=== PATIENT | female | born 1995 | race Caucasian/White ===

== ENCOUNTER → 2018-08-03 | Outpatient (CLI) | payer OTHER ==
--- NOTE | 2018-08-22 11:43 | P.PN ---
Progress Note - Text Progress Note Date: 08/22/18 Report on 14 day EVENT MONITOR: Baseline EKG showed a sinus rhythm. Patient mostly and stayed in sinus rhythm and sinus tachycardia with rates up to 1 5160. Patient also had 2 episodes of substernal ventricular tachycardia. The first episode lasted about 78 minutes associated with symptoms of palpitations. Second episode lasted about 30 minutes and at the time patient did not express any symptoms. Patient also complained of sharp chest pain and chest pressure, nausea vomiting, not conchis ating with any significant cardiac arrhythmias. Final impression #1. Baseline rhythm is sinus #2. Episodes of sinus tachycardia #3. 2 Episodes of supraventricular tachycardia. Patient did complain of palpitation with one episode #4. Patient complained of chest pain and tightness and nausea vomiting, not correlating with any cardiac events.
--- NOTE | 2018-08-24 17:08 | EM ---
Report on 14 day EVENT MONITOR: Baseline EKG showed a sinus rhythm. Patient mostly and stayed in sinus rhythm and sinus tachycardia with rates up to 1 5160. Patient also had 2 episodes of substernal ventricular tachycardia. The first episode lasted about 78 minutes associated with symptoms of palpitations. Second episode lasted about 30 minutes and at the time patient did not express any symptoms. Patient also complained of sharp chest pain and chest pressure, nausea vomiting, not collating with any significant cardiac arrhythmias. Final impression #1. Baseline rhythm is sinus #2. Episodes of sinus tachycardia #3. 2 Episodes of supraventricular tachycardia. Patient did complain of palpitation with one episode #4. Patient complained of chest pain and tightness and nausea vomiting, not correlating with any cardiac events. MTDD
== END | disposition home or self-care (01) ==
LOC: RADECHMAIN 11:41
PROVIDERS: ATTEND Family Medicine
DX: I47.1 Supraventricular tachycardia (principal); R11.2 Nausea with vomiting, unspecified
CPT/HCPCS: 93270

== ENCOUNTER 2018-08-14 18:00 | Emergency (ER) | payer OTHER ==
[2018-08-14 18:55] VITALS: TEMP 98.2
[2018-08-14] MEDS ORDERED: SODIUM CHLORIDE 0.9% 1,000 ML IV STA (19:53)
--- NOTE | 2018-08-14 19:59 | ED ---
General Adult HPI - General Chief complaint: Chest Pain Stated complaint: chest pain/high heart rate Time Seen by Provider: 08/14/18 19:42 Source: patient Mode of arrival: ambulatory Limitations: no limitations - History of Present Illness Initial comments: Dictation was produced using [employer] dictation software. please excuse any gramm atical, word or spelling errors. Chief Complaint: 23-year-old female past medical history of depression and fibromyalgia presents with chest pain, palpitations, shortness of breath. History of Present Illness: Patient is a 23-year-old female she has been a Holter monitor for approximately 2 weeks. She was given this Holter monitor by primary care physician for complaint of palpitations and tachycardia. Patient states she was standing up from a sitting position when she all of a sudden felt like her heart rate went up to the 200s. Patient came into the emergency department. Jimmy glover has a history of blood clot. She does complain of some generalized muscle aches. Denies any pain in her calf, popliteus or inner thigh. Denies any asymmetrical swelling. Patient denies any history of contraceptive pills. She reports that her pain is mildly sharp with some dull characteristic. She locates it to the right upper anterior chest. It sometimes worse with deep inspiration. She is at her symptoms are much improved since its onset. She does in fact have history of anxiety. The ROS documented in this emergency department record has been reviewed and confirmed by me. Those systems with pertinent positive or negative responses have been documented in the HPI. All other systems are other negative and/or noncontributory. PHYSICAL EXAM: General Impression: Alert and oriented x3, not in acute distress HEENT: Normocephalic atraumatic, extra-ocular movements intact, pupils equal and reactive to light bilaterally, mucous membranes moist. Cardiovascular: Tachycardic Chest: Lungs clear to auscultation bilaterally, no rhonchi, no wheeze, no rales Abdomen: Bowel sounds present, abdomen soft, non-tender, non-distended, no organomegaly Musculoskeletal: Pulses present and equal in all extremities, no peripheral edema Motor: no focal deficits noted Neurological: CN II-XII grossly intact, no focal motor or sensory deficits noted Skin: Intact with no visualized rashes Psych: Normal affect and mood ED course: 23yo female with past nuchal history of tachycardia presents with palpitations, chest pain or shortness of breath. Her chest pain is atypical with some typical features. Vital signs upon arrival shows heart rate of 133, worse vital signs within acceptable limits. Patient's physical examination is not suggestive of PE however she is tachycardic does have chest pain and shortness of breath.Laboratory evaluation obtained. Mild leukocytosis 12.5 rest of CBC unremarkable. Coag panel unremarkable. D-dimer is negative's of 0.49. Metabolic panel is unremarkable urinalysis negative. Urine is negative. Chest x-ray is unremarkable. The were able to get a Holter event monitoring results from her Holter monitor from [employer]. There are. Stool have been multiple occasions of supraventricular tachycardia. Patient reevaluated at bedside found to be stable medical condition. Patient given prescription for metoprolol to be taken once daily. She is given outpatient referral to cardiology. Discussed patient case with Dr. Esparza who believes that this plan is reasonable. EKG interpretation: Ventricular rate 425, sinus tachycardia,. Interval 126, QRS 70, QTc 453. No OR prolongation, no QTC prolongation, no ST or T-wave changes noted. No old EKG for comparison. There is a S1 every 3 T3 pattern. - Related Data Previous Rx's Medication Instructions Recorded Metoprolol Succinate (ER) [Toprol 25 mg PO DAILY #20 tab 08/14/18 Xl] Allergies Allergy/AdvReac Type Severity Reaction Status Date / Time No Known Allergies Allergy Verified 08/14/18 18:55 Review of Systems ROS Statement: Those systems with pertinent positive or pertinent negative responses have been documented in the HPI. ROS Other: All systems not noted in ROS Statement are negative. Past Medical History Past Medical History: Fibromyalgia Additional Past Medical History / Comment(s): TACHYCARDIA History of Any Multi-Drug Resistant Organisms: None Reported Past Surgical History: No Surgical Hx Reported Past Psychological History: Anxiety Smoking Status: Never smoker Past Alcohol Use History: Occasional Past Drug Use History: None Reported General Exam Limitations: no limitations Course Vital Signs 08/14/18 08/14/18 08/14/18 18:52 20:09 20:59 Temperature 98.2 F Pulse Rate 133 H 117 H 109 H Respiratory 20 18 16 Rate Blood Pressure 124/74 109/86 121/83 O2 Sat by Pulse 100 97 100 Oximetry Medical Decision Making - Lab Data Result diagrams: 08/14/18 20:05 08/14/18 20:05 Lab Results 08/14/18 08/14/18 08/14/18 Range/Units 20:05 20:05 20:05 WBC 12.5 H (3.8-10.6) k/uL RBC 4.88 (3.80-5.40) m/uL Hgb 12.9 (11.4-16.0) gm/dL Hct 39.7 (34.0-46.0) % MCV 81.4 (80.0-100.0) fL MCH 26.5 (25.0-35.0) pg MCHC 32.5 (31.0-37.0) g/dL RDW 12.8 (11.5-15.5) % Plt Count 485 H (150-450) k/uL Neutrophils % 69 % Lymphocytes % 23 % Monocytes % 4 % Eosinophils % 3 % Basophils % 0 % Neutrophils # 8.6 H (1.3-7.7) k/uL Lymphocytes # 2.8 (1.0-4.8) k/uL Monocytes # 0.5 (0-1.0) k/uL Eosinophils # 0.4 (0-0.7) k/uL Basophils # 0.0 (0-0.2) k/uL PT 9.4 (9.0-12.0) sec INR 0.9 (<1.2) APTT 26.6 (22.0-30.0) sec D-Dimer 0.49 (<0.60) mg/L FEU Sodium 139 (137-145) mmol/L Potassium 4.6 (3.5-5.1) mmol/L Chloride 104 (98-107) mmol/L Carbon Dioxide 22 (22-30) mmol/L Anion Gap 13 mmol/L BUN 12 (7-17) mg/dL Creatinine 0.77 (0.52-1.04) mg/dL Est GFR (CKD-EPI)AfAm >90 (>60 ml/min/1.73 sqM) Est GFR (CKD-EPI)NonAf >90 (>60 ml/min/1.73 sqM) Glucose 107 H (74-99) mg/dL Calcium 9.4 (8.4-10.2) mg/dL Magnesium 1.9 (1.6-2.3) mg/dL Total Bilirubin 0.2 (0.2-1.3) mg/dL AST 18 (14-36) U/L ALT 10 (9-52) U/L Alkaline Phosphatase 98 (38-126) U/L Troponin I (0.000-0.034) ng/mL Total Protein 7.8 (6.3-8.2) g/dL Albumin 4.2 (3.5-5.0) g/dL Urine Color Urine Appearance (Clear) Urine pH (5.0-8.0) Ur Specific Welch (1.001-1.035) Urine Protein (Negative) Urine Glucose (UA) (Negative) Urine Ketones (Negative) Urine Blood (Negative) Urine Nitrite (Negative) Urine Bilirubin (Negative) Urine Urobilinogen (<2.0) mg/dL Ur Leukocyte Esterase (Negative) Urine RBC (0-5) /hpf Urine WBC (0-5) /hpf Ur Squamous Epith Cells (0-4) /hpf Urine Bacteria (None) /hpf Hyaline Casts (0-2) /lpf Urine Mucus (None) /hpf Urine HCG, Qual (Not Detectd) 08/14/18 08/14/18 08/14/18 Range/Units 20:05 20:20 20:20 WBC (3.8-10.6) k/uL RBC (3.80-5.40) m/uL Hgb (11.4-16.0) gm/dL Hct (34.0-46.0) % MCV (80.0-100.0) fL MCH (25.0-35.0) pg MCHC (31.0-37.0) g/dL RDW (11.5-15.5) % Plt Count (150-450) k/uL Neutrophils % % Lymphocytes % % Monocytes % % Eosinophils % % Basophils % % Neutrophils # (1.3-7.7) k/uL Lymphocytes # (1.0-4.8) k/uL Monocytes # (0-1.0) k/uL Eosinophils # (0-0.7) k/uL Basophils # (0-0.2) k/uL PT (9.0-12.0) sec INR (<1.2) APTT (22.0-30.0) sec D-Dimer (<0.60) mg/L FEU Sodium (137-145) mmol/L Potassium (3.5-5.1) mmol/L Chloride (98-107) mmol/L Carbon Dioxide (22-30) mmol/L Anion Gap mmol/L BUN (7-17) mg/dL Creatinine (0.52-1.04) mg/dL Est GFR (CKD-EPI)AfAm (>60 ml/min/1.73 sqM) Est GFR (CKD-EPI)NonAf (>60 ml/min/1.73 sqM) Glucose (74-99) mg/dL Calcium (8.4-10.2) mg/dL Magnesium (1.6-2.3) mg/dL Total Bilirubin (0.2-1.3) mg/dL AST (14-36) U/L ALT (9-52) U/L Alkaline Phosphatase (38-126) U/L Troponin I <0.012 (0.000-0.034) ng/mL Total Protein (6.3-8.2) g/dL Albumin (3.5-5.0) g/dL Urine Color Yellow Urine Appearance Clear (Clear) Urine pH 6.5 (5.0-8.0) Ur Specific Welch 1.022 (1.001-1.035) Urine Protein 1+ H (Negative) Urine Glucose (UA) Negative (Negative) Urine Ketones Negative (Negative) Urine Blood Negative (Negative) Urine Nitrite Negative (Negative) Urine Bilirubin Negative (Negative) Urine Urobilinogen <2.0 (<2.0) mg/dL Ur Leukocyte Esterase Trace H (Negative) Urine RBC 3 (0-5) /hpf Urine WBC 1 (0-5) /hpf Ur Squamous Epith Cells 4 (0-4) /hpf Urine Bacteria Occasional H (None) /hpf Hyaline Casts 3 H (0-2) /lpf Urine Mucus Occasional H (None) /hpf Urine HCG, Qual Not Detected (Not Detectd) Disposition Clinical Impression: Paroxysmal SVT (supraventricular tachycardia) Disposition: HOME SELF-CARE Instructions (If sedation given, give patient instructions): Supraventricular Tachycardia (ED) Prescriptions: Metoprolol Succinate (ER) [Toprol Xl] 25 mg PO DAILY #20 tab Is patient prescribed a controlled substance at d/c from ED?: No Referrals: Shyam Virk DO [Primary Care Provider] - 1-2 days Pankaj Sin MD [STAFF PHYSICIAN] - 1-2 days Time of Disposition: 21:55
[2018-08-14 20:13] LABS: Basophils % (A) 0 %; Eosinophils # (A) 0.4 k/uL (0-0.7); Eosinophils % (A) 3 %; HCT 39.7 % (34.0-46.0); HGB 12.9 gm/dL (11.4-16.0); Lymphocytes # (A) 2.8 k/uL (1.0-4.8); Lymphocytes % (A) 23 %; MCH 26.5 pg (25.0-35.0); MCHC 32.5 g/dL (31.0-37.0); MCV 81.4 fL (80.0-100.0); Mean Platelet Volume 6.6; Monocytes # (A) 0.5 k/uL (0-1.0); Monocytes % (A) 4 %; Neutrophils # (A) 8.6 k/uL (1.3-7.7); Neutrophils % (A) 69 %; Platelet Count 485 k/uL (150-450); RBC 4.88 m/uL (3.80-5.40); RDW 12.8 % (11.5-15.5); WBC 12.5 k/uL (3.8-10.6)
[2018-08-14 20:23] LABS: ALT 10 U/L (9-52); AST 18 U/L (14-36); African American GFR (CKD) >90 (>60 ml/min/1.73 sqM); Albumin 4.2 g/dL (3.5-5.0); Alkaline Phosphatase 98 U/L (38-126); Anion Gap 13 mmol/L; Blood Urea Nitrogen 12 mg/dL (7-17); Calcium 9.4 mg/dL (8.4-10.2); Carbon Dioxide 22 mmol/L (22-30); Chloride 104 mmol/L (98-107); Glucose 107 mg/dL (74-99); Magnesium 1.9 mg/dL (1.6-2.3); Potassium 4.6 mmol/L (3.5-5.1); Sodium 139 mmol/L (137-145); Total Bilirubin 0.2 mg/dL (0.2-1.3); Total Protein 7.8 g/dL (6.3-8.2)
[2018-08-14 20:27] LABS: Appearance,Urine Clear (Clear); Bacteria,Urine Occasional /hpf; Bilirubin,Urine Negative (Negative); Blood,Urine Negative (Negative); Color,Urine Yellow; Glucose,Urine (UA) Negative (Negative); Hyaline Casts,Urine 3 /lpf (0-2); Ketones,Urine Negative (Negative); Leukocyte Esterase,Urine Trace (Negative); Mucus,Urine Occasional /hpf; Nitrite,Urine Negative (Negative); PH, Urine 6.5 (5.0-8.0); Protein,Urine 1+ (Negative); RBC,Urine 3 /hpf (0-5); Specific Gravity,Urine 1.022 (1.001-1.035); Squamous Epithelial Cell,Urine 4 /hpf (0-4); Urobilinogen,Urine <2.0 mg/dL (<2.0)
[2018-08-14 20:28] LABS: D-Dimer 0.49 mg/L FEU (<0.60); INR 0.9 (<1.2); Partial Thromboplastin Time 26.6 sec (22.0-30.0); Prothrombin Time 9.4 sec (9.0-12.0)
--- NOTE | 2018-08-14 21:27 | XR ---
EXAMINATION TYPE: XR chest 2V DATE OF EXAM: 08/14/2018 COMPARISON: None HISTORY: 23 year-old female with a pain TECHNIQUE: PA and lateral views FINDINGS: Heart upper limits of normal in size. Aorta and pulmonary vasculature within normal limits. Hazy lowe r lung densities related to overlying soft tissue. No consolidation or pleural effusion. IMPRESSION: Heart upper limits of normal in size. Otherwise, no acute cardiopulmonary process.
[2018-08-14] MEDS ORDERED: METOPROLOL TARTRATE 12.5 MG TAB PO STA (21:56)
[2018-08-14 21:59] VITALS: BP 129/79; PULSE 104; RESP 18
== END 2018-08-14 22:15 | disposition home or self-care (01) ==
LOC: EC 18:00
DX: I47.1 Supraventricular tachycardia (principal); D72.829 Elevated white blood cell count, unspecified
CPT/HCPCS: 36415; 71046; 80053; 81001; 81025; 83735; 84484; 85025; 85379; 85610; 85730; 93005; 96360; 96361; 99285

== ENCOUNTER 2024-02-15 17:45 | Emergency (ER) | payer BC, OTHER ==
--- NOTE | 2024-02-15 17:59 | ED ---
Abdominal Pain HPI - General Source: patient, RN notes reviewed Mode of arrival: ambulatory Limitations: no limitations <Latasha Wu - Last Filed: 02/15/24 17:58> - History of Present Illness MD Complaint: abdominal pain Onset/Timin -: days(s) Location: diffuse Migration to: no migration Severity: moderate Quality: cramping Consistency: intermittent Improves With: vomiting Worsens With: nothing Associated Symptoms: nausea, vomiting, diarrhea - Related Data LMP (females 10-50): 2 months Patient : No <Garry Mercado - Last Filed: 02/28/24 03:56> - General Stated Complaint: Abdominal pain, nausea Time Seen by Provider: 02/15/24 17:58 - History of Present Illness Initial Comments: Quick note: 28-year-old female presented to the ER for evaluation of abdominal pain. She states this been ongoing since Tuesday. Patient endorses nausea, vomiting. Denies fevers. Patient sent by urgent care. (Latasha Wu) Agree with above, patient has been having some nausea and abdominal pain since Tuesday. She has had vomiting with no hematemesis or blood. She states 1 episode of vomiting today. (Garry Mercado) - Related Data Previous Rx's Medication Instructions Recorded Metoprolol Succinate (ER) [Toprol 25 mg PO DAILY #20 tab 08/14/18 Xl] Ondansetron Odt [Zofran ODT] 4 mg PO Q8HR PRN #10 tab 02/15/24 Allergies Allergy/AdvReac Type Severity Reaction Status Date / Time No Known Allergies Allergy Verified 02/15/24 18:11 Review of Systems ROS Other: All systems not noted in ROS Statement are negative. <Latasha Wu - Last Filed: 02/15/24 17:58> ROS Other: All systems not noted in ROS Statement are negative. Constitutional: Denies: fever, chills Respiratory: Denies: cough, dyspnea Cardiovascular: Denies: chest pain, palpitations, edema Gastrointestinal: Reports: abdominal pain, nausea, vomiting, diarrhea. Denies: constipation, hematemesis, melena, hematochezia Genitourinary: Denies: dysuria, frequency, hematuria, discharge Musculoskeletal: Denies: back pain Skin: Denies: rash Neurological: Denies: headache, weakness <Garry Mercado - Last Filed: 02/28/24 03:56> ROS Statement: Those systems with pertinent positive or pertinent negative responses have been documented in the HPI. Past Medical History Past Medical History: Fibromyalgia Additional Past Medical History / Comment(s): TACHYCARDIA History of Any Multi-Drug Resistant Organisms: None Reported Past Surgical History: No Surgical Hx Reported Past Psychological History: Anxiety Past Alcohol Use History: Occasional Past Drug Use History: None Reported <Latasha Wu - Last Filed: 02/15/24 17:58> General Exam <Latasha Wu - Last Filed: 02/15/24 17:58> General appearance: alert, in no apparent distress Head exam: Present: atraumatic, normocephalic Eye exam: Present: normal appearance. Absent: scleral icterus, conjunctival injection Neck exam: Present: normal inspection Respiratory exam: Present: normal lung sounds bilaterally. Absent: respiratory distress, wheezes, rales, rhonchi, stridor, accessory muscle use Cardiovascular Exam: Present: regular rate, normal rhythm, normal heart sounds. Absent: systolic murmur, diastolic murmur, rubs, gallop GI/Abdominal exam: Present: soft, tenderness (Mild diffuse tenderness without rebound or guarding). Absent: distended, guarding, rebound, rigid, mass, pulsatile mass, hernia Extremities exam: Present: normal inspection, normal capillary refill. Absent: pedal edema, calf tenderness Back exam: Present: normal inspection. Absent: CVA tenderness (R), CVA tenderness (L) Neurological exam: Present: alert Skin exam: Present: warm, dry, intact, normal color. Absent: rash <JessGarry - Last Filed: 02/28/24 03:56> - General Exam Comments Initial Comments: Visual Physical Exam Vital signs reviewed General: Well-appearing, nontoxic, no acute distress. Head: Normocephalic, atraumatic Eyes: PERRLA, EOMI ENT: Airway patent Chest: Nonlabored breathing Skin: No visual rash, normal skin tone Neuro: Alert and oriented 3 Musculoskeletal: No gross abnormalities (Latasha Wu) Course Vital Signs 02/15/24 02/15/24 02/15/24 18:08 19:45 22:03 Temperature 98.3 F 98.3 F Pulse Rate 79 74 75 Respiratory 16 15 16 Rate Blood Pressure 129/86 114/73 126/77 O2 Sat by Pulse 100 99 100 Oximetry Medical Decision Making <Latasha Wu - Last Filed: 02/15/24 17:58> - Lab Data Result diagrams: 02/15/24 18:25 02/15/24 18:25 <Garry Mercado - Last Filed: 02/28/24 03:56> - Medical Decision Making I performed the quick note portion of this chart. Electronically signed by Latasha Wu PA-C (Latasha Wu) The patient had CT scan of the abdomen and pelvis which I interpreted as being negative for free air or obstruction. No acute surgical condition. There is right ovarian cyst Was pt. sent in by a medical professional or institution ([facility], CAGER OPERATOR, urgent care, hospital, or skilled nursing...) When possible be specific @ -[No] Did you speak to anyone other than the patient for history (EMS, parent, family, police, friend...)? What history was obtained from this source @ -[No] Did you review nursing and triage notes (agree or disagree)? Why? @ -[I reviewed and agree with nursing and triage notes] Were old charts reviewed (outside hosp., previous admission, EMS record, old EKG, old radiological studies, urgent care reports/EKG's, skilled nursing records)? Report findings @ -[No old charts were reviewed] Differential Diagnosis (chest pain, altered mental status, abdominal pain women, abdominal pain men, vaginal bleeding, weakness, fever, dyspnea, syncope, headache, dizziness, GI bleed, back pain, seizure, CVA, palpatations, mental health, musculoskeletal)? @ -[Differential Abdominal Pain Women: Appendicitis, Cholecystitis, diverticulosis, ischemic bowel, pancreatitis, hepatitis, UTI, gastroenteritis, AAA, incarcerated hernia, bowel obstruction, constipation, inflammatory bowel, hepatitis, peptic ulcer disease, splenic infarction, perforated viscus, vulvitis, ovarian torsion, PID, kidney stone, placenta abruption, this is not meant to be an all-inclusive list EKG interpreted by me (3pts min.). @ -[As above] X-rays interpreted by me (1pt min.). @ -[None done] CT interpreted by me (1pt min.). @ -[I interpreted as above U/S interpreted by me (1pt. min.). @ -[None done] What testing was considered but not performed or refused? (CT, X-rays, U/S, labs)? Why? @ -[None] What meds were considered but not given or refused? Why? @ -[None] Did you discuss the management of the patient with other professionals (professionals i.e. , PA, CAGER OPERATOR, lab, RT, psych nurse, social service liaison, molding technician, teacher, transport corps officer, onsite case manager)? Give summary @ -[No] Was smoking cessation discussed for >3mins.? @ -[No] Was critical care preformed (if so, how long)? @ -[No] Were there social determinants of health that impacted care today? How? (Homelessness, low income, unemployed, alcoholism, drug addiction, transportation, low edu. Level, literacy, decrease access to med. care, shelter, rehab)? @ -[No] Was there de-escalation of care discussed even if they declined (Discuss DNR or withdrawal of care, Hospice)? DNR status @ -[No] What co-morbidities impacted this encounter? (DM, HTN, Smoking, COPD, CAD, Cancer, CVA, ARF, Chemo, Hep., AIDS, mental health diagnosis, sleep apnea, morbid obesity)? @ -[None] Was patient admitted / discharged? Hospital course, mention meds given and route, prescriptions, significant lab abnormalities, going to OR and other pertinent info. @ -[Patient is a 28-year-old woman here with abdominal pain. The patient's CT scan not revealing acute surgical condition. The patient has had improvement here in emergency department, discussed appropriate further care and follow-up as well as return parameters. Undiagnosed new problem with uncertain prognosis? @ -[No] Drug Therapy requiring intensive monitoring for toxicity (Heparin, Nitro, Insulin, Cardizem)? @ -[No] Were any procedures done? @ -[No] Diagnosis/symptom? @ -[Acute abdominal pain Acute, or Chronic, or Acute on Chronic? @ -[Acute Uncomplicated (without systemic symptoms) or Complicated (systemic symptoms)? @ -[Uncomplicated Side effects of treatment? @ -[No] Exacerbation, Progression, or Severe Exacerbation? @ -[No] Poses a threat to life or bodily function? How? (Chest pain, [place], [place], pneumonia, PE, COPD, DKA, ARF, appy, cholecystitis, CVA, Diverticulitis, Homicidal, Suicidal, threat to staff... and all critical care pts) @ -[No] All treatments are based on ideal body weight as in ED triage (Garry Mercado) - Lab Data Lab Results 02/15/24 02/15/24 02/15/24 Range/Units 18:25 18:25 18:25 WBC 15.7 H (3.8-10.6) k/uL RBC 5.28 (3.80-5.40) m/uL Hgb 14.9 (11.4-16.0) gm/dL Hct 44.2 (34.0-46.0) % MCV 83.6 (80.0-100.0) fL MCH 28.3 (25.0-35.0) pg MCHC 33.8 (31.0-37.0) g/dL RDW 12.6 (11.5-15.5) % Plt Count 481 H (150-450) k/uL MPV 7.0 Neutrophils % 68 % Lymphocytes % 23 % Monocytes % 6 % Eosinophils % 2 % Basophils % 1 % Neutrophils # 10.7 H (1.3-7.7) k/uL Lymphocytes # 3.6 (1.0-4.8) k/uL Monocytes # 0.9 (0-1.0) k/uL Eosinophils # 0.3 (0-0.7) k/uL Basophils # 0.1 (0-0.2) k/uL Sodium 140 (137-145) mmol/L Potassium 4.4 (3.5-5.1) mmol/L Chloride 99 (98-107) mmol/L Carbon Dioxide 20 L (22-30) mmol/L Anion Gap 21 mmol/L BUN 11 (7-17) mg/dL Creatinine 0.59 (0.52-1.04) mg/dL Est GFR (CKD-EPI)AfAm >90 (>60 ml/min/1.73 sqM) Est GFR (CKD-EPI)NonAf >90 (>60 ml/min/1.73 sqM) Glucose 91 (74-99) mg/dL Plasma Lactic Acid Jeremy 1.2 (0.7-2.0) mmol/L Calcium 10.2 (8.4-10.2) mg/dL Total Bilirubin 0.6 (0.2-1.3) mg/dL AST 35 (14-36) U/L ALT 43 H (4-34) U/L Alkaline Phosphatase 124 (38-126) U/L C-Reactive Protein 1.5 H (<1.0) mg/dL Total Protein 10.0 H (6.3-8.2) g/dL Albumin 5.5 H (3.5-5.0) g/dL Amylase 86 (30-110) U/L Lipase 55 (23-300) U/L Urine Color Urine Appearance (Clear) Urine pH (5.0-8.0) Ur Specific Karval (1.001-1.035) Urine Protein (Negative) Urine Glucose (UA) (Negative) Urine Ketones (Negative) Urine Blood (Negative) Urine Nitrite (Negative) Urine Bilirubin (Negative) Urine Urobilinogen (<2.0) mg/dL Ur Leukocyte Esterase (Negative) Urine RBC (0-5) /hpf Urine WBC (0-5) /hpf Ur Squamous Epith Cells (0-4) /hpf Urine Bacteria (None) /hpf Urine Mucus (None) /hpf Urine HCG, Qual (Not Detectd) 02/15/24 02/15/24 Range/Units 19:40 19:40 WBC (3.8-10.6) k/uL RBC (3.80-5.40) m/uL Hgb (11.4-16.0) gm/dL Hct (34.0-46.0) % MCV (80.0-100.0) fL MCH (25.0-35.0) pg MCHC (31.0-37.0) g/dL RDW (11.5-15.5) % Plt Count (150-450) k/uL MPV Neutrophils % % Lymphocytes % % Monocytes % % Eosinophils % % Basophils % % Neutrophils # (1.3-7.7) k/uL Lymphocytes # (1.0-4.8) k/uL Monocytes # (0-1.0) k/uL Eosinophils # (0-0.7) k/uL Basophils # (0-0.2) k/uL Sodium (137-145) mmol/L Potassium (3.5-5.1) mmol/L Chloride (98-107) mmol/L Carbon Dioxide (22-30) mmol/L Anion Gap mmol/L BUN (7-17) mg/dL Creatinine (0.52-1.04) mg/dL Est GFR (CKD-EPI)AfAm (>60 ml/min/1.73 sqM) Est GFR (CKD-EPI)NonAf (>60 ml/min/1.73 sqM) Glucose (74-99) mg/dL Plasma Lactic Acid Jeremy (0.7-2.0) mmol/L Calcium (8.4-10.2) mg/dL Total Bilirubin (0.2-1.3) mg/dL AST (14-36) U/L ALT (4-34) U/L Alkaline Phosphatase (38-126) U/L C-Reactive Protein (<1.0) mg/dL Total Protein (6.3-8.2) g/dL Albumin (3.5-5.0) g/dL Amylase (30-110) U/L Lipase (23-300) U/L Urine Color Light Yellow Urine Appearance Clear (Clear) Urine pH 5.5 (5.0-8.0) Ur Specific Karval 1.014 (1.001-1.035) Urine Protein Negative (Negative) Urine Glucose (UA) Negative (Negative) Urine Ketones 3+ H (Negative) Urine Blood Small H (Negative) Urine Nitrite Negative (Negative) Urine Bilirubin Negative (Negative) Urine Urobilinogen <2.0 (<2.0) mg/dL Ur Leukocyte Esterase Negative (Negative) Urine RBC 1 (0-5) /hpf Urine WBC 1 (0-5) /hpf Ur Squamous Epith Cells 5 H (0-4) /hpf Urine Bacteria Rare H (None) /hpf Urine Mucus Few H (None) /hpf Urine HCG, Qual Not Detected (Not Detectd) Disposition <Latasha Wu - Last Filed: 02/15/24 17:58> Is patient prescribed a controlled substance at d/c from ED?: No <Garry Mercado - Last Filed: 02/28/24 03:56> Clinical Impression: Abdominal pain Disposition: HOME SELF-CARE Condition: Good Instructions (If sedation given, give patient instructions): Abdominal Pain (ED) Prescriptions: Ondansetron Odt [Zofran ODT] 4 mg PO Q8HR PRN #10 tab PRN Reason: Nausea Referrals: Shyam Virk DO [Primary Care Provider] - 1-2 days
[2024-02-15 18:11] VITALS: TEMP 98.3
[2024-02-15 18:43] LABS: Basophils # (A) 0.1 k/uL (0-0.2); Basophils % (A) 1 %; Eosinophils # (A) 0.3 k/uL (0-0.7); Eosinophils % (A) 2 %; HCT 44.2 % (34.0-46.0); HGB 14.9 gm/dL (11.4-16.0); Lymphocytes # (A) 3.6 k/uL (1.0-4.8); Lymphocytes % (A) 23 %; MCH 28.3 pg (25.0-35.0); MCHC 33.8 g/dL (31.0-37.0); MCV 83.6 fL (80.0-100.0); Monocytes # (A) 0.9 k/uL (0-1.0); Monocytes % (A) 6 %; Neutrophils # (A) 10.7 k/uL (1.3-7.7); Neutrophils % (A) 68 %; Platelet Count 481 k/uL (150-450); RBC 5.28 m/uL (3.80-5.40); RDW 12.6 % (11.5-15.5); WBC 15.7 k/uL (3.8-10.6)
[2024-02-15 18:52] LABS: ALT 43 U/L (4-34); African American GFR (CKD) >90 (>60 ml/min/1.73 sqM); Albumin 5.5 g/dL (3.5-5.0); Amylase 86 U/L (30-110); Anion Gap 21 mmol/L; Blood Urea Nitrogen 11 mg/dL (7-17); Calcium 10.2 mg/dL (8.4-10.2); Carbon Dioxide 20 mmol/L (22-30); Chloride 99 mmol/L (98-107); Glucose 91 mg/dL (74-99); Lipase 55 U/L (23-300); Non-African American GFR(CKD) >90 (>60 ml/min/1.73 sqM); Sodium 140 mmol/L (137-145); Total Bilirubin 0.6 mg/dL (0.2-1.3)
[2024-02-15 19:11] LABS: C Reactive Protein 1.5 mg/dL (<1.0)
[2024-02-15 19:12] LABS: AST 35 U/L (14-36); Alkaline Phosphatase 124 U/L (38-126); Potassium 4.4 mmol/L (3.5-5.1)
[2024-02-15] MEDS: SODIUM CHLORIDE 0.9% 1,000 ML IV ONE (19:41)
[2024-02-15] MEDS: ONDANSETRON 4 MG/2 ML VIAL IVP STA (19:42)
[2024-02-15 20:10] LABS: Appearance,Urine Clear (Clear); Bacteria,Urine Rare /hpf; Bilirubin,Urine Negative (Negative); Blood,Urine Small (Negative); Color,Urine Light Yellow; Glucose,Urine (UA) Negative (Negative); Ketones,Urine 3+ (Negative); Leukocyte Esterase,Urine Negative (Negative); Mucus,Urine Few /hpf; Nitrite,Urine Negative (Negative); PH, Urine 5.5 (5.0-8.0); Protein,Urine Negative (Negative); RBC,Urine 1 /hpf (0-5); Specific Gravity,Urine 1.014 (1.001-1.035); Squamous Epithelial Cell,Urine 5 /hpf (0-4); Urobilinogen,Urine <2.0 mg/dL (<2.0); WBC,Urine 1 /hpf (0-5)
--- NOTE | 2024-02-15 21:13 | CT ---
EXAMINATION TYPE: CT abdomen pelvis w con DATE OF EXAM: 02/15/2024 HISTORY: Sent by urgent care - nausea and abdominal pain (sharp, cramping) unable to keep anything do wn PO since Tuesday. CT DLP: 1452.9mGycm Automated Exposure Control for Dose Reduction was Utilized. CONTRAST: CT scan of the abdomen and pelvis is performed with IV Contrast, patient injected with 100 ml mL of I sovue 300. COMPARISON: None. FINDINGS: LUNG BASES: No significant abnormality is appreciated. LIVER/GB: Liver is heterogeneously hypodense consistent with diffuse fatty infiltrative hepatocellula r disease. No biliary dilatation. PANCREAS: No significant abnormality is seen. SPLEEN: No significant abnormality is seen. ADRENALS: No significant abnormality is seen. KIDNEYS: Symmetric cortical medullary uptake and excretion without hydronephrosis seen bilaterally. BOWEL: Slightly suboptimal study without enteric contrast. No abnormal small or large bowel dilatatio n is seen. Appendix within normal limits from cecum coronal image 51. UTERUS/ADNEXA: Anteverted uterus projects to right of midline. There is 2.2 cm round low density lesi on right ovary axis image 75 could reflect corpus luteal cyst. No free fluid in the pelvis. LYMPH NODES: No greater than 1cm abdominal or pelvic lymph nodes are appreciated. OSSEOUS STRUCTURES: No significant abnormality is seen. OTHER: Tiny fat-containing umbilical hernia sagittal image 70. IMPRESSION: No bowel obstruction. There is diffuse fatty infiltrated hepatocellular disease present. [facility], , 02/15/2024 9:10 PM
[2024-02-15 22:05] VITALS: BP 126/77; PULSE 75; RESP 16
== END 2024-02-15 22:05 | disposition home or self-care (01) ==
LOC: EC 17:45
DX: N83.201 Unspecified ovarian cyst, right side (principal)
CPT/HCPCS: 36415; 80053; 82150; 83605; 83690; 85025; 86140; 81001; 81025; 74177; 99284; 96374; 96361; J2405; Q9967